=== PATIENT | male | born 1940 | race Caucasian/White ===

== ENCOUNTER 2016-09-27 10:59 | Inpatient (IN) ==
[2016-09-27] MEDS ORDERED: NS 1,000 ML IV SCH (11:33)
[2016-09-27 12:15] LABS: MANUAL DIFF NEEDED? NO
[2016-09-27 12:20] LABS: BASO% 0.2 % (0.0-0.8); EOS# 0.02 X1000 (0.0-0.7); EOS% 0.4 % (0.0-10.0); HEMATOCRIT 32.3 % (42.0-52.0); HEMOGLOBIN 11.2 g/dL (14.0-18.0); LYMPH# 0.41 X1000 (1.2-3.4); LYMPH% 8.4 % (20.5-51.1); MCH 33.9 PG (27-31); MCHC 34.7 g/dL (33-37); MCV 97.9 FL (81-99); MONO# 0.87 X1000 (0.11-0.59); MONO% 17.8 % (1.7-9.3); MPV 9.2 FL (7.4-10.4); NEUT% 73.2 % (42.2-75.2); PLT 244 X1000 (130-400)
[2016-09-27 12:25] LABS: PTT 33.3 Seconds (22.0-36.0)
[2016-09-27 12:26] LABS: INR 1.02; PROTIME 10.7 Seconds (9.2-11.7)
--- NOTE | 2016-09-27 12:50 | Diag Imaging Result Doc PS360 ---
EXAM: HEAD W/O CONTRAST TECHNIQUE: INDICATION: fall w head injury COMPARISON: 08/05/2011 FINDINGS: There is mild diffuse brain atrophy, stable. There is no definite acute infarct given the limited sensitivity of CT versus MRI. There is no discrete intracranial mass, mass effect, or intracranial hemorrhage. There is mild soft tissue edema involving the scalp at the forehead. The calvaria is intact. IMPRESSION: Stable mild atrophy but no evidence of acute intracranial pathology. Electronically signed by Candelario Castro 09/27/2016 12:48 PM
[2016-09-27 12:52] LABS: AGAP 14; ALBUMIN 3.6 g/dL (3.5-5.0); ALKALINE PHOSPHATASE 117 U/L (32-122); BUN 5 mg/dL (8-22); CALCIUM 8.9 mg/dL (8.8-10.2); CHLORIDE 78 mmol/L (98-107); COSMO 236; GOT 25 U/L (10-34); GPT 10 U/L (10-44); POTASSIUM 4.2 mmol/L (3.5-5.1); TCO2 26 mmol/L (25-35); TOTAL BILIRUBIN 0.41 mg/dL (0.20-1.00); TOTAL PROTEIN 8.3 g/dL (6.3-8.3)
[2016-09-27 13:04] LABS: SODIUM 118 mmol/L (136-145)
[2016-09-27] MEDS ORDERED: ATIVAN IV ONE (13:23)
[2016-09-27] MEDS ORDERED: NICODERM PATCH TD ONE (13:23)
[2016-09-27] MEDS ORDERED: TYLENOL PO PRN ×2 (14:30)
[2016-09-27] MEDS ORDERED: COLACE PO PRN (14:30)
[2016-09-27] MEDS ORDERED: TESSALON PO PRN (14:30)
[2016-09-27] MEDS ORDERED: ZOFRAN IV PRN (14:30)
[2016-09-27] MEDS: NS 1,000 ML IV SCH (14:48)
--- NOTE | 2016-09-27 15:35 | HISTORY AND PHYSICAL ---
HISTORY OF PRESENT ILLNESS: This is a 76-year-old well known to me, presented with increasing weakness. He has fallen 3 or 4 times in the last 48 hours. The sodium was 114. He has not been eating or drinking, states he has had very dark stools and thinks he is losing blood, plan to admit him for IV fluids try and improve his hyponatremia and work on his strength, weakness. PAST MEDICAL HISTORY: 1. Benign prostatic hypertrophy. 2. Chronic prostatitis. 3. Lower urinary tract symptoms for which he is on Flomax and finasteride. 4. Inguinal hernia repair. 5. 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 Momin, recently underwent radiation therapy just last week in [place]. 6. Erectile dysfunction. 7. Hypertension. 8. Overactive bladder. 9. In the hospital 03/20/2015 for extensive treatment pneumonia during that time he developed an ulcer in the right foot and had peripheral arterial disease that Dr. Torres has been following him, he performed vascular bypass and his foot is healed well. 10. Peripheral vascular disease, ischemia the right foot with revascularization Dr. Jeffery has done well. 11. History of gouty arthritis. 12. Prolonged recovery from hospitalization 03/20/2015 slowly got stronger. 13. Alcoholism been able to cut down on his alcohol. 14. Hyponatremia combination of poor intake, hypovolemia, dehydration and also inappropriate ADH probably related to his underlying cancer. REVIEW OF SYSTEMS: states he is getting weaker and stools are dark and black she feels like he is losing blood. No trouble with his breathing, no chest pain. Musculoskeletal/Neurologic. Just general weakness. No focal deficit. PHYSICAL EXAMINATION: VITAL SIGNS: Temperature 97.5 degrees, pulse 77, respirations 15, blood pressure 150/67. PUPILS: Equal, round. LUNGS: Clear in all lung mohan. CARDIOVASCULAR: Regular rhythm, rate without murmur or S3. ABDOMEN: Soft. SKIN: Warm and dry. ABDOMEN: Soft. EXTREMITIES: No pedal edema. LAB: White count 4890, hematocrit 32 with an MCV of 97, platelet count 244,000. Sodium 118, potassium 4.2, chloride 78, bicarb 26, BUN 5, creatinine 0.5, calcium is 8.9. Liver functions AST was 25, ALT 10, albumin 3.6. Pro time 10.7, PTT is 33. Head CT without contrast stable mild atrophy, no evidence acute intracranial pathology. ASSESSMENT AND PLAN: 1. Oropharyngeal mass with suspected metastasis to the lung, recent radiation treatment presents with general weakness, deconditioning which is multifactorial. 2. Hyponatremia. Sodium was 114 last week, it is up to 118, I am going to give him some fluids and watch his sodium and encourage p.o. intake. 3. Oropharyngeal cancer with metastatic disease has undergone multiple oropharyngeal surgeries and recently radiation to the lungs. 4. Peripheral vascular disease. 5. Chronic prostatitis, benign prostatic hypertrophy and bladder spasms in the past. 6. Diabetes mellitus type 2. Will follow his sugars. 7. General weakness and deconditioning. Encourage physical therapy and encourage p.o. intake. cc: Wesley Cordero MD
[2016-09-27 16:05] LABS: URINE MICRO REVIEW NEEDED? NO; URINE SOURCE CLEAN CATCH
[2016-09-27 16:17] LABS: BILIRUBIN URINE NEGATIVE (NEGATIVE); BLOOD URINE NEGATIVE (NEGATIVE); COLOR YELLOW; GLUCOSE URINE NEGATIVE (NEGATIVE); LEUKOCYTES URINE LARGE (NEGATIVE); NITRITE URINE POSITIVE (NEGATIVE); PH URINE 6.5; PROTEIN URINE NEGATIVE (NEGATIVE); SP GRAVITY URINE 1.001; TURBIDITY URINE HAZY (CLEAR); UROBILINOGEN URINE NORMAL (NORMAL)
[2016-09-27 16:19] LABS: UR EPITHELIAL CELLS <10 /HPF (<10); URINE BACTERIA 4+ /HPF; URINE CULTURE NEEDED? YES; URINE RBC <10 /HPF (<10); URINE WBC TNTC /HPF (<10)
[2016-09-27] MEDS: NORCO-5 PO PRN ×2 (17:18→22:05)
[2016-09-27] MEDS: ATIVAN PO SCH (22:05)
[2016-09-27] MEDS: ELAVIL PO SCH (22:06)
[2016-09-28] MEDS: PRILOSEC PO SCH (06:53)
[2016-09-28] MEDS: NORCO-5 PO PRN (06:53)
[2016-09-28] MEDS: NS 1,000 ML IV SCH ×4 (06:54→23:20)
[2016-09-28 06:57] LABS: INR 0.96
[2016-09-28 07:02] LABS: AGAP 8; ALBUMIN 3.3 g/dL (3.5-5.0); ALKALINE PHOSPHATASE 105 U/L (32-122); BUN 6 mg/dL (8-22); CALCIUM 8.6 mg/dL (8.8-10.2); CHLORIDE 85 mmol/L (98-107); COSMO 251; GOT 21 U/L (10-34); GPT 8 U/L (10-44); MAGNESIUM 1.3 mg/dL (1.5-2.7); POTASSIUM 3.8 mmol/L (3.5-5.1); SODIUM 126 mmol/L (136-145); TCO2 33 mmol/L (25-35); TOTAL BILIRUBIN 0.44 mg/dL (0.20-1.00); TOTAL PROTEIN 7.7 g/dL (6.3-8.3)
--- NOTE | 2016-09-28 07:09 | EKG Report ---
Test Performed on : 09/28/2016 06:50:04 AM Test Reason : chest pain Blood Pressure : / mmHG Vent. Rate : 090 BPM Atrial Rate : 090 BPM P-R Int : 156 ms QRS Dur : 092 ms QT Int : 356 ms P-R-T Axes : 039 058 066 degrees QTc Int : 435 ms Normal sinus rhythm. Normal ECG When compared with ECG of 09-JUN-2016 10:27, No significant change was found Confirmed by Wayne Bowles MD ([id number]) on 09/29/2016 6:03:09 AM
--- NOTE | 2016-09-28 09:15 | Diag Imaging Result Doc PS360 ---
EXAM: CHEST, TWO VIEWS HISTORY: hyponatremia TECHNIQUE: COMPARISON: 05/02/2016 FINDINGS: The lungs are well expanded. The heart is not enlarged. Mild increased AP diameter to the chest. The vessels are not distended. Mild increased markings in the upper right lung and in the left base. No consolidation. IMPRESSION: 1.The patient may have emphysema. 2.There is likely a combination of atelectasis and fibrosis in the right apex and left base. Electronically signed by Erik Mayfield 09/28/2016 9:13 AM
[2016-09-28] MEDS: PROSCAR PO SCH (09:45)
[2016-09-28] MEDS: PLAVIX PO SCH (09:45)
[2016-09-28] MEDS: KLOR-CON PO SCH (09:45)
[2016-09-28] MEDS: VITAMIN D PO SCH (09:45)
[2016-09-28] MEDS: MAG-OX PO SCH (09:45)
[2016-09-28] MEDS: THERA M PLUS PO SCH (09:45)
[2016-09-28] MEDS: ICAR-C PLUS PO SCH (09:45)
[2016-09-28] MEDS: FLOMAX PO SCH (09:45)
[2016-09-28] MEDS: ATIVAN PO SCH ×2 (09:45→21:32)
[2016-09-28] MEDS: CARDIZEM CD PO SCH (09:45)
--- NOTE | 2016-09-28 13:31 | PROGRESS NOTE ---
DATE: 09/28/2016 SUBJECTIVE: Mr. Mina states he do not feel real good. Did not sleep much last night. Sodium has improved though and he feels like he can eat some. His breathing is comfortable. Vital signs: Temperature 98.2 degrees, pulse 77, respirations 20, blood pressure 136/64. Lungs: Are clear in all lung mohan. Cardiovascular: Regular rhythm and rate without murmur or S3. Abdomen: Soft. Skin: Warm and dry. Urine output was about 3.6 L. LAB: Reviewed from yesterday. White count 4890, hematocrit 32, platelet count 244,000. Chemistry. Sodium 126, came up from 118, potassium 3.8, chloride 85, BUN 6, creatinine 0.5, blood sugar 154, 140, 106. Liver transaminases unremarkable, albumin 3.3. Chest x-ray from yesterday he has some underlying emphysema, combination of atelectasis and fibrosis in the right apex and left base otherwise clear. ASSESSMENT AND PLAN: 1. Hyponatremia combination of volume depletion and also syndrome of inappropriate antidiuretic hormone secretion. It seems to respond to fluid. I will decrease his normal saline down to 75 mL an hour. 2. Oropharyngeal cancer with lung cancer as well. Recent radiation treatments. 3. General weakness and deconditioning. Has fallen 3 times multifactorial. Improve his sodium and will begin physical therapy again. 4. Peripheral vascular disease. 5. Chronic prostatitis, benign prostatic hypertrophy. 6. Diabetes mellitus type 2. Sugars appear to be under good control. Will adjust his fluid. Hopefully can go home soon. cc: Wesley Cordero MD
[2016-09-28] MEDS: ELAVIL PO SCH (21:32)
[2016-09-29 05:38] LABS: MANUAL DIFF NEEDED? NO
[2016-09-29 05:47] LABS: BASO% 0.1 % (0.0-0.8); EOS# 0.02 X1000 (0.0-0.7); EOS% 0.3 % (0.0-10.0); HEMATOCRIT 29.2 % (42.0-52.0); HEMOGLOBIN 9.7 g/dL (14.0-18.0); IMM GRAN# 0.02 X1000 (0.0-0.04); IMM GRAN% 0.3 % (0.0-0.5); LYMPH# 0.58 X1000 (1.2-3.4); LYMPH% 8.5 % (20.5-51.1); MCH 32.8 PG (27-31); MCHC 33.2 g/dL (33-37); MCV 98.6 FL (81-99); MONO# 1.22 X1000 (0.11-0.59); MONO% 17.8 % (1.7-9.3); MPV 8.4 FL (7.4-10.4); PLT 235 X1000 (130-400); RBC 2.96 XMIL (4.7-6.1)
[2016-09-29] MEDS: PRILOSEC PO SCH (06:12)
[2016-09-29 06:13] LABS: AGAP 8; BUN 4 mg/dL (8-22); CALCIUM 8.2 mg/dL (8.8-10.2); CHLORIDE 89 mmol/L (98-107); COSMO 255; MAGNESIUM 1.2 mg/dL (1.5-2.7); POTASSIUM 3.6 mmol/L (3.5-5.1); SODIUM 128 mmol/L (136-145); TCO2 31 mmol/L (25-35)
[2016-09-29] MEDS ORDERED: MAGNESIUM SULFATE 2 GM/S.W.I. 2 GM/50 ML IVPB IV ONE (07:42)
--- NOTE | 2016-09-29 08:21 | PROGRESS NOTE ---
DATE: 09/29/2016 SUBJECTIVE: He says he feels better. He is awake. No tremor. OBJECTIVE: General: He is alert and oriented x3. Vital signs: Temp 98.5 degrees, pulse 98, respirations 20, blood pressure 116/67. HEENT: Pupils are equal. Neck: CVP less than 6 cm. Lungs: Clear in all lung mohan. Cardiovascular: Regular rhythm and rate without murmur or S3. Abdomen: Soft. Skin: Warm and dry. Intake and output: Urine output 2700 mL. LAB: White count 6,850, hematocrit 29, platelet count 235,000. Sodium 128, potassium 3.6, chloride 89, BUN 4, creatinine 0.5. Blood sugar 142 and 113. Creatinine 1.2. ASSESSMENT: 1. Hyponatremia, a combination of volume depletion and also syndrome of inappropriate antidiuretic hormone. Is responding to fluid volume. Sodium up to 128. Doing much better. 2. Oropharyngeal cancer, lung cancer. Recent radiation treatments. 3. General weakness and deconditioning. Begin physical therapy and see how we do. 4. Peripheral vascular disease. 5. Chronic prostatitis and prostatic hypertrophy. 6. Diabetes mellitus type 2. Sugar is under good control. PLAN: I am going to begin some physical therapy. Get him up out of bed. Hopefully he can go home tomorrow. There still is potential for alcohol withdrawal and delirium tremens as his states he has been drinking quite a bit. cc: Wesley Cordero MD
[2016-09-29] MEDS ORDERED: NICODERM PATCH TD ONE (09:12)
[2016-09-29] MEDS: NS 1,000 ML IV SCH ×2 (09:22→11:04)
[2016-09-29] MEDS: ICAR-C PLUS PO SCH (09:23)
[2016-09-29] MEDS: KLOR-CON PO SCH (09:23)
[2016-09-29] MEDS: ATIVAN PO SCH ×2 (09:23→21:13)
[2016-09-29] MEDS: THERA M PLUS PO SCH (09:23)
[2016-09-29] MEDS: CARDIZEM CD PO SCH (09:23)
[2016-09-29] MEDS: PLAVIX PO SCH (09:23)
[2016-09-29] MEDS: VITAMIN D PO SCH (09:23)
[2016-09-29] MEDS: FLOMAX PO SCH (09:23)
[2016-09-29] MEDS: MAG-OX PO SCH ×3 (09:23→21:13)
[2016-09-29] MEDS: PROSCAR PO SCH (09:23)
[2016-09-29] MEDS: NICODERM PATCH TD SCH (09:29)
[2016-09-29] MEDS: NORCO-5 PO PRN ×2 (11:03→14:41)
[2016-09-29] MEDS: THIAMINE 100 MG in NS 50 ML IV SCH (11:04)
[2016-09-29] MEDS: ELAVIL PO SCH (21:13)
[2016-09-30] MEDS: NS 1,000 ML IV SCH ×3 (01:13→11:05)
[2016-09-30] MEDS: PRILOSEC PO SCH (06:26)
[2016-09-30 06:42] LABS: AGAP 11; BUN 5 mg/dL (8-22); CALCIUM 8.3 mg/dL (8.8-10.2); CHLORIDE 87 mmol/L (98-107); COSMO 257; MAGNESIUM 1.4 mg/dL (1.5-2.7); POTASSIUM 3.5 mmol/L (3.5-5.1); SODIUM 128 mmol/L (136-145); TCO2 30 mmol/L (25-35)
[2016-09-30 08:28] VITALS: BP 113/75
[2016-09-30] MEDS ORDERED: MAGNESIUM SULFATE 2 GM/S.W.I. 2 GM/50 ML IVPB IV ONE (08:45)
--- NOTE | 2016-09-30 09:00 | DISCHARGE SUMMARY ---
ADMISSION DATE: 09/27/2016 DISCHARGE DATE: 09/30/2016 HISTORY: This is a 76-year-old, well known to me, who has fallen 3 or 4 times in the last 48 hours. Sodium was 114, measured by home health. When he came to the emergency room, it was 118. His states that he is drinking whiskey a little heavier. We put him on fluids. He appeared to have a combination of volume depletion and also inappropriate ADH. I gave him normal saline, and sodium did come up nicely. On the day of discharge, sodium was 128, potassium 3.5. Magnesium is 1.4. I did put him back on p.o. magnesium, and will supplement him some IV magnesium before he leaves. DISCHARGE MEDICATIONS: We will keep him on Elavil 10 mg at bedtime, Tessalon Perles as needed for his cough, vitamin D 1000 units p.o. daily, Plavix 75 mg a day, Cardizem CD 120 mg daily, Colace 100 mg daily, Proscar 5 mg a day, hydrocodone as needed 5 mg every 4 hours, Icar-C 1 a day, Ativan 1 mg b.i.d., Mag-Ox 800 mg b.i.d., Thera-M Plus multivitamin 1 a day. I am going to let him have some NicoDerm patches, and have had several discussions about the importance of him stopping tobacco and stopping smoking. He will be on Prilosec 40 mg daily, Klor-Con 40 mEq daily, Flomax 0.4 mg daily. FOLLOWUP: I will see him back in my office in about 4 weeks. He is followed by Dr. Momin, has had recent radiation treatment to lung masses, and a long history of oropharyngeal cancer and multiple surgeries. He just had radiation treatment to his lungs last week. Note, he also has peripheral vascular disease. His foot ulcer has healed well. He has had vascular surgery per Dr. Torres, doing very well with that. cc: Wesley Cordero MD
[2016-09-30] MEDS: THIAMINE 100 MG in NS 50 ML IV SCH (09:15)
[2016-09-30] MEDS: NICODERM PATCH TD SCH (09:16)
[2016-09-30] MEDS: MAG-OX PO SCH ×2 (09:44→09:48)
[2016-09-30] MEDS: FLOMAX PO SCH (09:44)
[2016-09-30] MEDS: VITAMIN D PO SCH (09:44)
[2016-09-30] MEDS: PROSCAR PO SCH (09:44)
[2016-09-30] MEDS: KLOR-CON PO SCH (09:44)
[2016-09-30] MEDS: ATIVAN PO SCH (09:44)
[2016-09-30] MEDS: CARDIZEM CD PO SCH (09:44)
[2016-09-30] MEDS: THERA M PLUS PO SCH (09:45)
[2016-09-30] MEDS: ICAR-C PLUS PO SCH (09:45)
[2016-09-30] MEDS: PLAVIX PO SCH (09:45)
--- NOTE | 2016-10-01 08:40 | PROVIDER DOCUMENTATION ---
This chart was entered by Arianna Aguilar Scribe, acting as scribe for Higinio Basurto MD. HPI-General Adult - General Chief Complaint: Head Injury Stated Complaint: FALL/HEAD INJURY Time Seen by Provider: 09/27/16 11:20 Source: patient Allergies/Adverse Reactions: Patient Allergies Allergy/AdvReac Type Severity Reaction Status Date / Time Penicillins Allergy RASH Verified 09/27/16 18:17 Home Medications: Home Medication List Medication Instructions Recorded Confirmed Last Taken Type Multivitamin [Multi-Day Vitamins] 1 each PO DAILY 08/16/14 09/27/16 09/27/16 History Finasteride [Proscar] 5 mg PO DAILY 05/08/15 09/27/16 09/27/16 History Lorazepam 1 mg PO BID 05/08/15 09/27/16 09/26/16 History Potassium Chloride [Klor-Con M20] 20 meq PO DAILY 05/08/15 09/27/16 09/27/16 History Tamsulosin [Flomax] 0.4 mg PO DAILY 05/08/15 09/27/16 09/27/16 History Iron Carbonyl/Vit C/Vit B12/FA 1 each PO DAILY 08/27/15 09/27/16 09/27/16 History [Icar-C Plus] Amitriptyline [Elavil] 10 mg PO HS 03/20/16 09/27/16 09/26/16 History Diltiazem HCl [Cartia Xt] 120 mg PO DAILY 03/20/16 09/27/16 09/27/16 History Benzonatate [Tessalon] 100 mg PO Q4H PRN PRN #30 capsule 04/05/16 09/27/1606/15 04:30 Rx Clopidogrel [Plavix] 75 mg PO DAILY #30 tablet 06/16/16 09/27/16 09/27/16 Rx Hydrocodone/Acetaminophen [[place] 1 each PO Q4H PRN PRN #10 tablet 06/16/1609/27 Unknown Rx 5-325 Tablet] Acetaminophen [Tylenol] 1,000 mg PO Q6H PRN PRN 09/27/16 09/27/16 Unknown History Cholecalciferol (Vitamin D3) 1,000 unit PO DAILY 09/27/16 09/27/16 09/27/16 History [Vitamin D3] Docusate Sodium 100 mg PO DAILY PRN 09/27/16 09/27/16 Unknown History Iron,Carbonyl/Vit C/Vit B12/FA 1 tab PO DAILY 09/27/16 09/27/16 09/27/16 History [Iron 100 Plus Tablet] Magnesium Oxide [Mag-Ox] 800 mg PO BID #60 tablet 09/30/16 Unknown Rx - History of Present Illness -Gen Adult Nature of Presenting Problems: Pt is a 76 year old male who came to the ED with a cc of falling and hitting his head. Pt reports he is currently on blood thinners. pt reports he is having rectal bleeding and black tarry stools. pt reports he has lung cancer and mouth cancer and smokes and drinks 8 beers a day. Location of Pain/Injury: reports: generalized Pain Radiation: reports: no radiation Quality of Pain: reports: cramping Severity: reports: mild Onset/Duration: reports: unsure Timing: reports: still present Similar Symptoms Previously?: No Recently seen or treated by another doctor?: No Review of Systems - Adult - REVIEW OF SYSTEMS - ADULT Constitutional: denies: chills, fever Eyes: reports: no symptoms reported Ears, Nose, Mouth & Throat: denies: loose teeth, throat swelling Cardiovascular: reports: no symptoms reported Respiratory: reports: no symptoms reported Gastrointestinal: reports: abdominal pain, rectal bleeding. denies: diarrhea, nausea, vomiting Genitourinary: reports: no symptoms reported Musculoskeletal: reports: other (head injury). denies: frequent leg cramps, joint swelling Integumentary: reports: no symptoms reported Neurological: reports: no symptoms reported Psychiatric: reports: no symptoms reported Endocrine: reports: no symptoms reported Hematologic/Lymphatic: reports: no symptoms reported Allergic/Immunologic: reports: no symptoms reported All Other Systems: Reviewed and Negative Past History - Adult - PAST MEDICAL HISTORY-ADULT Review of Records: reports: Old Records Reviewed, Nursing Assessment Review Major Childhood Illnesses: reports: denies history Cardiovascular: reports: A-Fib, [place] Respiratory: reports: COPD, cancer (lung) Gastrointestinal: reports: denies history Obstetrical/Gynecological: reports: denies history Genitourinary: reports: denies history Musculoskeletal: reports: denies history Neurological: reports: denies history Endocrine/Immune: reports: denies history Other Conditions: reports: denies history - PRIOR SURGERIES/PROCEDURES Surgical/Procedure History: reports: recent surgery (08/20/2014), hernia repair, other (TURP) - IMMUNIZATION STATUS Childhood Immunizations: See Nurse Assessment Flu Vaccine: See Nurse Assessment - FAMILY HISTORY Family History: reviewed, not pertinent - SOCIAL HISTORY Smoking: cigarettes, greater than 1 pack/day Provider spent 3-5 mins advising pt. on dangers of tobacco.: Discussed manners to quit use, and f/u contacts for add'l counseling. Substance Use: alcohol Physical Exam-General - PHYSICAL EXAM-ADULT Initial Vital Signs Reviewed: Yes - CONSTITUTIONAL General Appearance: appears well, alert, no apparent distress - EYES Eyes: PERRL/EOMI, pink conjunctivae - HEAD, EARS, NOSE, MOUTH & THROAT HENMT: normocephalic/atraumatic, moist mucous membranes - NECK Neck: non-tender, full range of motion - RESPIRATORY Respiratory: chest non-tender, wheezing (cleared after coughing) - CARDIOVASCULAR Cardiovascular: normal peripheral pulses, regular rate, rhythm - GASTROINTESTINAL (ABDOMEN) Abdominal Exam: normal bowel sounds, non tender - MUSCULOSKELETAL Back Exam: normal inspection, no CVA tenderness Extremity: normal range of motion, non-tender - SKIN Integumentary: abrasion(s) (6cm on the right side of the forehead) - NEUROLOGIC Neurologic: grossly normal - PSYCHIATRIC Psych/Mental Status: normal mood/affect, normal thought content, normal thought process, oriented x 3 Progress - PLAN OF CARE/RESULTS Progress/Plan/Lab Results: Vital Signs - 8 hr 09/27/16 11:09 Temperature 97.5 F L Pulse Rate 83 Respiratory Rate 20 Blood Pressure 99/51 O2 Sat by Pulse Oximetry 97 Orders Category Date Time Status HEAD W/O CONTRAST [CT] Stat Exams 09/27/16 11:21 Ordered CBC WITH ELECTRONIC DIFF [HEME] Stat Lab 09/27/16 11:21 Uncollected COMPREHENSIVE METABOLIC PANEL [CHEM] Stat Lab 09/27/16 11:21 Uncollected PROTIME WITH INR [COAG] Stat Lab 09/27/16 11:33 Uncollected PTT [COAG] Stat Lab 09/27/16 11:33 Uncollected 0.9% Sodium Chloride Inj [Ns] 1,000 ml Med 09/27/16 11:33 Ordered IV 125 mls/hr Result Diagrams: 09/29/16 05:30 09/30/16 05:20 - CT/MRI 1 CT Study: Head - CONSULTS/PCP/HOSPITALIST Notification #1 *Consult/PCP/Hospitalist*: Cordero Time Discussed: 13:00 Consult Disposition: Admit Departure - Departure Date of Disposition Decision: 09/25/16 Time of Disposition Decision: 13:00 DIAGNOSIS: Weakness Disposition: ADMITTED INPATIENT 09 Certified Medical Emergency: Emergent Condition: Stable - Critical Care Note This patient required my direct & personal management of CC.: No Attestation - Physician/ PRABHU Attestation Patient care was provided by Advanced Practice Provider:: No The physician spent face to face time with patient:: Yes Advanced Practice Provider documentation review:: Supervising physician onsite and consulted in the evaluation and care of this patient. The physician did have a face to face encounter with the patient. This chart was documented by the indicated scribe, (Arianna Aguilar Scribe) and accurately reflects the services I performed and decisions made by me, Higinio Basurto MD, as attested by the provider's signature.
== END 2016-09-30 12:16 | disposition home health service (06) ==
LOC: ED 10:59 → 4N 13:41
PROVIDERS: ADMIT Emergency Medicine; ATTEND Emergency Medicine